=== PATIENT | male | born 1950 | race Caucasian/White ===

== ENCOUNTER 2022-07-22 15:36 | Inpatient (IN) | payer MEDICARE, OTHER ==
[~2022-07-22] VITALS: Ht 188 cm; Wt 80.7 kg
[2022-07-22] MEDS ORDERED: diphenhydrAMINE 50 MG/1 ML VIAL ONE (15:45)
[2022-07-22] MEDS ORDERED: HALOPERIDOL LACTATE 5 MG/1 ML VIAL ONE ×2 (15:46→17:45)
[2022-07-22] MEDS ORDERED: HALOPERIDOL LACTATE 5 MG/1 ML VIAL IM ONE ×2 (16:00→17:15)
[2022-07-22] MEDS ORDERED: diphenhydrAMINE 50 MG/1 ML VIAL IM ONE (16:00)
[2022-07-22] MEDS ORDERED: THIA100T13 PO (16:12)
[2022-07-22] MEDS ORDERED: BUSP30TA2 PO ×2 (16:12→20:55)
[2022-07-22] MEDS ORDERED: OLAN10TA3 PO ×2 (16:12→20:55)
[2022-07-22] MEDS ORDERED: SENN-261 PO ×2 (16:12→20:55)
[2022-07-22] MEDS ORDERED: FINA5TAB11 PO ×2 (16:12→20:55)
[2022-07-22] MEDS ORDERED: DIVA500T4 PO (16:12)
[2022-07-22] MEDS ORDERED: LORA-259 PO ×2 (16:12→20:55)
[2022-07-22] MEDS ORDERED: ERGO2000 PO (16:12)
[2022-07-22] MEDS ORDERED: TRAZ-182 PO ×2 (16:12→20:55)
[2022-07-22] MEDS ORDERED: AMAN100T PO ×2 (16:12→20:55)
[2022-07-22] MEDS ORDERED: DIVA500T2 PO ×3 (16:12→20:55)
[2022-07-22] MEDS ORDERED: LEVO100T PO ×2 (16:12→20:55)
[2022-07-22] MEDS ORDERED: CYAN100T44 PO ×2 (16:12→20:55)
[2022-07-22] MEDS ORDERED: LORAZEPAM 2 MG/1 ML VIAL ONE (16:39)
[2022-07-22] MEDS ORDERED: LORAZEPAM 2 MG/1 ML VIAL IM ONE ×2 (16:45→17:45)
[2022-07-22 18:19] LABS: HEMATOCRIT 36.5 % (36.7-47.1); MEAN CORPUSCULAR VOLUME 95.4 fL (73.0-96.2); PLATELET COUNT (AUTO) 243 K/uL (152-348)
[2022-07-22 18:31] LABS: CARBON DIOXIDE 27 mmol/L (21-32); CHLORIDE 107 mmol/L (98-107); GLUCOSE 106 mg/dL (74-106); POTASSIUM 4.9 mmol/L (3.5-5.1); UREA NITROGEN, BLOOD 39 mg/dL (7-18)
[2022-07-22 18:36] LABS: ALANINE AMINOTRANSFERASE 19 U/L (16-63); ALKALINE PHOSPHATASE 88 U/L (50-136); ASPARTATE AMINOTRANSFERASE 10 U/L (15-37); BILIRUBIN,DIRECT 0.1 mg/dL (0.0-0.2); BILIRUBIN,TOTAL 0.2 mg/dL (0.2-1.0); ETHANOL < 3 MG/DL (0-0); TOTAL PROTEIN, SERUM 6.9 g/dL (6.4-8.2)
[2022-07-22 18:37] LABS: ACETAMINOPHEN < 10.0 ug/mL (10-30)
[2022-07-22 20:34] LABS: *BILIRUBIN,URIN NEGATIVE (NEGATIVE); *CLARITY,URINE CLEAR (CLEAR); *COLOR,URINE LIGHT YELLOW (YELLOW); *KETONES,URINE NEGATIVE (NEGATIVE); *UROBILINOGEN,URINE 0.2 E.U./dl (NORMAL); LEUKOCYTE ESTERASE ,URINE 1+ (NEGATIVE); NITRITE, URINE NEGATIVE (NEGATIVE); UGLUCOSE NEGATIVE (NEGATIVE)
[2022-07-22 20:36] LABS: *BLOOD, URINE TRACE (NEGATIVE)
[2022-07-22] MEDS ORDERED: THIA100T74 PO (20:55)
[2022-07-22] MEDS ORDERED: ERGO50CA PO (20:55)
[2022-07-22] MEDS ORDERED: IV NS 1000 ML 1,000 ML IV ONE (21:00)
[2022-07-22 21:06] LABS: *AMPHETAMINE, URINE NEGATIVE (NEGATIVE); *CANNABINOID, URINE NEGATIVE (NEGATIVE); *COCCAINE, URINE NEGATIVE (NEGATIVE); *PHENCYCLIDINE SCREEN,URINE NEGATIVE (NEGATIVE); BACTERIA,URINE MANY /HPF (NONE SEEN); SQUAMOUS EPITHELIAL CELL,UR FEW /HPF (NONE SEEN); WBC,URINE 50-80 /HPF (0-3)
[2022-07-22] MEDS ORDERED: MAG HYDROX/AL HYDROX/SIMETH 30 ML LIQUID UDC PO PRN (23:00)
[2022-07-22] MEDS ORDERED: BLOOD SUGAR DIAGNOSTIC 1 EACH STRIP VI ONE (23:00)
[2022-07-22] MEDS ORDERED: MAGNESIUM HYDROXIDE 30 ML LIQUID UDC PO PRN (23:00)
[2022-07-22 23:14] VITALS: BP 163/92
[2022-07-22] MEDS: LORAZEPAM 1 MG TABLET PO PRN (23:21)
[2022-07-22] MEDS: ZOLPIDEM 5 MG TABLET PO PRN (23:21)
[2022-07-23] MEDS: LORAZEPAM 1 MG TABLET PO PRN ×3 (06:21→17:08)
[2022-07-23 07:30] VITALS: BP 152/60
[2022-07-23] MEDS: NICOTINE 21 MG/24HR PATCH TD SCH (09:12)
[2022-07-23] MEDS: DIVALPROEX 500 MG TABLET.DR PO SCH ×4 (10:03→20:21)
[2022-07-23] MEDS: OLANZAPINE 5 MG TABLET PO SCH ×3 (10:03→16:56)
[2022-07-23] MEDS ORDERED: HOME MED MISCELLANEOUS XX SCH (11:30)
[2022-07-23 16:00] VITALS: BP 142/81
[2022-07-23] MEDS: SENNOSIDES 1 TABLET PO SCH (16:56)
[2022-07-23 19:53] VITALS: BP 147/75
[2022-07-23] MEDS: TRAZODONE 50 MG TABLET PO SCH (20:21)
[2022-07-23] MEDS: ATORVASTATIN 40 MG TABLET PO SCH (20:21)
[2022-07-23] MEDS ORDERED: AMANTADINE HCL 100 MG CAPSULE ONE (21:02)
[2022-07-23] MEDS: AMANTADINE HCL 100 MG CAPSULE PO SCH (21:11)
[2022-07-23 21:22] LABS: *BILIRUBIN,URIN NEGATIVE (NEGATIVE); *BLOOD, URINE 2+ (NEGATIVE); *CLARITY,URINE CLEAR (CLEAR); *COLOR,URINE YELLOW (YELLOW); *KETONES,URINE NEGATIVE (NEGATIVE); *UROBILINOGEN,URINE 0.2 E.U./dl (NORMAL); LEUKOCYTE ESTERASE ,URINE 3+ (NEGATIVE); NITRITE, URINE NEGATIVE (NEGATIVE); PH,URINE 6.5 (5.0-8.0); UGLUCOSE NEGATIVE (NEGATIVE)
[2022-07-23 21:35] LABS: *CREATININE,URINE 26.4 mg/dL (30-125); *URINE TOTAL PROTEIN RANDOM 42.9 mg/dL (<150/24HR)
[2022-07-23] MEDS: CEphaleXIN 500 MG CAPSULE PO SCH (22:14)
[2022-07-24] MEDS: LORAZEPAM 1 MG TABLET PO PRN ×2 (04:23→22:07)
[2022-07-24] MEDS: CEphaleXIN 500 MG CAPSULE PO SCH ×3 (05:47→22:07)
[2022-07-24] MEDS: LEVOTHYROXINE SODIUM 100 MCG TABLET PO SCH (06:24)
[2022-07-24 07:54] VITALS: BP 143/70
[2022-07-24] MEDS ORDERED: CYANOCOBALAMIN 100 MCG TABLET PO SCH (09:00)
[2022-07-24] MEDS: DIVALPROEX 500 MG TABLET.DR PO SCH ×4 (09:50→22:14)
[2022-07-24] MEDS: SENNOSIDES 1 TABLET PO SCH ×2 (09:51→17:09)
[2022-07-24] MEDS: FINASTERIDE 5 MG TABLET PO SCH (09:51)
[2022-07-24] MEDS: CYANOCOBALAMIN 1,000 MCG TABLET PO SCH (09:52)
[2022-07-24] MEDS: THIAMINE HCL 100 MG TABLET PO SCH (09:52)
[2022-07-24] MEDS: NICOTINE 21 MG/24HR PATCH TD SCH (09:55)
[2022-07-24] MEDS: OLANZAPINE 5 MG TABLET PO SCH ×3 (09:55→17:09)
[2022-07-24] MEDS: CHOLECALCIFEROL 1,000 UNIT TABLET PO SCH (09:55)
[2022-07-24] MEDS: AMANTADINE HCL 100 MG CAPSULE PO SCH ×2 (10:06→22:06)
[2022-07-24 16:22] VITALS: BP 124/70
[2022-07-24] MEDS: ATORVASTATIN 40 MG TABLET PO SCH (22:07)
[2022-07-24] MEDS: TRAZODONE 50 MG TABLET PO SCH (22:07)
[2022-07-25] MEDS: CEphaleXIN 500 MG CAPSULE PO SCH ×3 (06:07→20:47)
[2022-07-25] MEDS: LEVOTHYROXINE SODIUM 100 MCG TABLET PO SCH (06:10)
[2022-07-25 07:54] LABS: CARBON DIOXIDE 24 mmol/L (21-32); CHLORIDE 107 mmol/L (98-107); CREATININE 1.9 mg/dL (0.6-1.3); GLUCOSE 97 mg/dL (74-106); POTASSIUM 4.7 mmol/L (3.5-5.1); UREA NITROGEN, BLOOD 43 mg/dL (7-18)
[2022-07-25 08:19] VITALS: BP 117/58
[2022-07-25] MEDS: FINASTERIDE 5 MG TABLET PO SCH (08:59)
[2022-07-25] MEDS: CHOLECALCIFEROL 1,000 UNIT TABLET PO SCH (08:59)
[2022-07-25] MEDS: SENNOSIDES 1 TABLET PO SCH ×2 (08:59→16:55)
[2022-07-25] MEDS: NICOTINE 21 MG/24HR PATCH TD SCH (08:59)
[2022-07-25] MEDS: AMANTADINE HCL 100 MG CAPSULE PO SCH ×2 (09:00→20:47)
[2022-07-25] MEDS: THIAMINE HCL 100 MG TABLET PO SCH (09:00)
[2022-07-25] MEDS: OLANZAPINE 5 MG TABLET PO SCH ×3 (09:00→16:55)
[2022-07-25] MEDS: CYANOCOBALAMIN 1,000 MCG TABLET PO SCH (09:00)
[2022-07-25] MEDS: DIVALPROEX 500 MG TABLET.DR PO SCH ×4 (09:00→20:47)
[2022-07-25 16:06] VITALS: BP 135/73
[2022-07-25 19:55] VITALS: BP 116/66
[2022-07-25] MEDS: LORAZEPAM 1 MG TABLET PO PRN (20:47)
[2022-07-25] MEDS: ATORVASTATIN 40 MG TABLET PO SCH (20:47)
[2022-07-25] MEDS: TRAZODONE 50 MG TABLET PO SCH (20:47)
[2022-07-25] MEDS: ACETAMINOPHEN 325 MG TABLET PO PRN (20:47)
[2022-07-26] MEDS: LORAZEPAM 1 MG TABLET PO PRN ×3 (05:28→20:12)
[2022-07-26] MEDS: ACETAMINOPHEN 325 MG TABLET PO PRN ×2 (05:28→20:13)
[2022-07-26] MEDS: CEphaleXIN 500 MG CAPSULE PO SCH ×3 (05:28→20:12)
[2022-07-26] MEDS: LEVOTHYROXINE SODIUM 100 MCG TABLET PO SCH (05:30)
[2022-07-26 08:52] VITALS: BP 116/53
[2022-07-26] MEDS: DIVALPROEX 500 MG TABLET.DR PO SCH ×4 (09:14→20:13)
[2022-07-26] MEDS: FINASTERIDE 5 MG TABLET PO SCH (09:14)
[2022-07-26] MEDS: OLANZAPINE 5 MG TABLET PO SCH ×3 (09:15→16:25)
[2022-07-26] MEDS: CHOLECALCIFEROL 1,000 UNIT TABLET PO SCH (09:15)
[2022-07-26] MEDS: SENNOSIDES 1 TABLET PO SCH ×2 (09:15→16:25)
[2022-07-26] MEDS: CYANOCOBALAMIN 1,000 MCG TABLET PO SCH (09:15)
[2022-07-26] MEDS: NICOTINE 21 MG/24HR PATCH TD SCH (09:16)
[2022-07-26] MEDS: AMANTADINE HCL 100 MG CAPSULE PO SCH ×2 (09:18→20:13)
[2022-07-26] MEDS: THIAMINE HCL 100 MG TABLET PO SCH (09:19)
[2022-07-26 16:44] VITALS: BP 94/45
[2022-07-26 20:12] VITALS: BP 111/56
[2022-07-26] MEDS: ATORVASTATIN 40 MG TABLET PO SCH (20:13)
[2022-07-26] MEDS: TRAZODONE 50 MG TABLET PO SCH (20:13)
[2022-07-27] MEDS: CEphaleXIN 500 MG CAPSULE PO SCH ×3 (06:28→21:39)
[2022-07-27] MEDS: LORAZEPAM 1 MG TABLET PO PRN ×2 (06:28→21:39)
[2022-07-27] MEDS: LEVOTHYROXINE SODIUM 100 MCG TABLET PO SCH (06:28)
[2022-07-27 08:14] VITALS: BP 122/80
[2022-07-27] MEDS: AMANTADINE HCL 100 MG CAPSULE PO SCH ×2 (08:25→21:39)
[2022-07-27] MEDS: THIAMINE HCL 100 MG TABLET PO SCH (08:25)
[2022-07-27] MEDS: NICOTINE 21 MG/24HR PATCH TD SCH (08:25)
[2022-07-27] MEDS: OLANZAPINE 5 MG TABLET PO SCH ×2 (08:26→16:16)
[2022-07-27] MEDS: CHOLECALCIFEROL 1,000 UNIT TABLET PO SCH (08:26)
[2022-07-27] MEDS: DIVALPROEX 500 MG TABLET.DR PO SCH ×4 (08:26→21:39)
[2022-07-27] MEDS: SENNOSIDES 1 TABLET PO SCH ×2 (08:26→16:16)
[2022-07-27] MEDS: CYANOCOBALAMIN 1,000 MCG TABLET PO SCH (08:26)
[2022-07-27] MEDS: FINASTERIDE 5 MG TABLET PO SCH (08:26)
[2022-07-27 16:01] VITALS: BP 123/75
[2022-07-27 19:50] VITALS: BP 132/76
[2022-07-27] MEDS: ATORVASTATIN 40 MG TABLET PO SCH (21:39)
[2022-07-27] MEDS: TRAZODONE 50 MG TABLET PO SCH (21:39)
[2022-07-28] MEDS: LORAZEPAM 1 MG TABLET PO PRN ×2 (05:56→12:40)
[2022-07-28] MEDS: LEVOTHYROXINE SODIUM 100 MCG TABLET PO SCH (05:56)
[2022-07-28] MEDS: CEphaleXIN 500 MG CAPSULE PO SCH ×2 (05:57→14:00)
[2022-07-28] MEDS: ACETAMINOPHEN 325 MG TABLET PO PRN (05:58)
[2022-07-28 07:30] VITALS: BP 122/81
[2022-07-28] MEDS: AMANTADINE HCL 100 MG CAPSULE PO SCH ×2 (09:28→20:47)
[2022-07-28] MEDS: NICOTINE 21 MG/24HR PATCH TD SCH (09:28)
[2022-07-28] MEDS: SENNOSIDES 1 TABLET PO SCH ×2 (09:29→17:29)
[2022-07-28] MEDS: FINASTERIDE 5 MG TABLET PO SCH (09:29)
[2022-07-28] MEDS: OLANZAPINE 5 MG TABLET PO SCH ×2 (09:29→17:29)
[2022-07-28] MEDS: DIVALPROEX 500 MG TABLET.DR PO SCH ×4 (09:29→20:47)
[2022-07-28] MEDS: CYANOCOBALAMIN 1,000 MCG TABLET PO SCH (09:29)
[2022-07-28] MEDS: CHOLECALCIFEROL 1,000 UNIT TABLET PO SCH (09:29)
[2022-07-28] MEDS: THIAMINE HCL 100 MG TABLET PO SCH (09:35)
[2022-07-28 16:00] VITALS: BP 129/89
[2022-07-28] MEDS: ATORVASTATIN 40 MG TABLET PO SCH (20:47)
[2022-07-28] MEDS: TRAZODONE 50 MG TABLET PO SCH (20:47)
[2022-07-28] MEDS: ZOLPIDEM 5 MG TABLET PO PRN (21:35)
[2022-07-29] MEDS: LEVOTHYROXINE SODIUM 100 MCG TABLET PO SCH (06:00)
[2022-07-29 07:44] LABS: HEMATOCRIT 40.4 % (36.7-47.1); MEAN CORPUSCULAR HEMOGLOBIN 30.9 uug (23.8-33.4); MEAN CORPUSCULAR VOLUME 95.1 fL (73.0-96.2); PLATELET COUNT (AUTO) 243 K/uL (152-348)
[2022-07-29 08:00] VITALS: BP 127/84
[2022-07-29] MEDS: DIVALPROEX 500 MG TABLET.DR PO SCH ×4 (08:40→20:17)
[2022-07-29] MEDS: THIAMINE HCL 100 MG TABLET PO SCH (08:41)
[2022-07-29] MEDS: SENNOSIDES 1 TABLET PO SCH ×2 (08:41→17:19)
[2022-07-29] MEDS: CHOLECALCIFEROL 1,000 UNIT TABLET PO SCH (08:41)
[2022-07-29] MEDS: FINASTERIDE 5 MG TABLET PO SCH (08:41)
[2022-07-29] MEDS: CYANOCOBALAMIN 1,000 MCG TABLET PO SCH (08:41)
[2022-07-29] MEDS: AMANTADINE HCL 100 MG CAPSULE PO SCH ×2 (08:43→20:17)
[2022-07-29] MEDS: NICOTINE 21 MG/24HR PATCH TD SCH (08:43)
[2022-07-29 08:45] LABS: ALANINE AMINOTRANSFERASE 20 U/L (16-63); ALKALINE PHOSPHATASE 93 U/L (50-136); ASPARTATE AMINOTRANSFERASE 10 U/L (15-37); BILIRUBIN,TOTAL 0.3 mg/dL (0.2-1.0); CARBON DIOXIDE 28 mmol/L (21-32); CHLORIDE 108 mmol/L (98-107); CREATINE KINASE, TOTAL 78 U/L (39-308); CREATININE 1.7 mg/dL (0.6-1.3); GLUCOSE 95 mg/dL (74-106); MAGNESIUM 2.3 mg/dL (1.8-2.4); PHOSPHOROUS 3.3 mg/dL (2.5-4.9); POTASSIUM 4.9 mmol/L (3.5-5.1); TOTAL PROTEIN, SERUM 7.8 g/dL (6.4-8.2); UREA NITROGEN, BLOOD 39 mg/dL (7-18)
[2022-07-29] MEDS: OLANZAPINE 5 MG TABLET PO SCH ×4 (08:46→17:20)
[2022-07-29] MEDS ORDERED: OLANZAPINE 10 MG VIAL IM ONE (09:00)
[2022-07-29] MEDS: LORAZEPAM 1 MG TABLET PO PRN (10:34)
[2022-07-29 12:00] VITALS: BP 97/43
[2022-07-29 16:00] VITALS: BP 132/72
[2022-07-29] MEDS: ATORVASTATIN 40 MG TABLET PO SCH (20:17)
[2022-07-29] MEDS: TRAZODONE 50 MG TABLET PO SCH (20:17)
[2022-07-30] MEDS: LORAZEPAM 1 MG TABLET PO PRN ×2 (03:39→12:55)
[2022-07-30] MEDS: LEVOTHYROXINE SODIUM 100 MCG TABLET PO SCH (06:26)
[2022-07-30 08:00] VITALS: BP 114/63
[2022-07-30] MEDS: CYANOCOBALAMIN 1,000 MCG TABLET PO SCH (08:54)
[2022-07-30] MEDS: OLANZAPINE 5 MG TABLET PO SCH ×3 (08:54→17:33)
[2022-07-30] MEDS: SENNOSIDES 1 TABLET PO SCH ×2 (08:55→17:32)
[2022-07-30] MEDS: DIVALPROEX 500 MG TABLET.DR PO SCH ×4 (08:55→20:24)
[2022-07-30] MEDS: THIAMINE HCL 100 MG TABLET PO SCH (08:55)
[2022-07-30] MEDS: CHOLECALCIFEROL 1,000 UNIT TABLET PO SCH (08:55)
[2022-07-30] MEDS: FINASTERIDE 5 MG TABLET PO SCH (08:55)
[2022-07-30] MEDS: AMANTADINE HCL 100 MG CAPSULE PO SCH ×2 (08:56→20:24)
[2022-07-30] MEDS: NICOTINE 21 MG/24HR PATCH TD SCH (08:57)
[2022-07-30 16:24] VITALS: BP 131/88
[2022-07-30] MEDS: ATORVASTATIN 40 MG TABLET PO SCH (20:24)
[2022-07-30] MEDS: TRAZODONE 50 MG TABLET PO SCH (20:24)
[2022-07-30 20:26] VITALS: BP 115/51
[2022-07-31] MEDS: LEVOTHYROXINE SODIUM 100 MCG TABLET PO SCH (06:19)
[2022-07-31] MEDS: LORAZEPAM 1 MG TABLET PO PRN ×2 (07:46→21:27)
[2022-07-31 07:55] VITALS: BP 136/80
[2022-07-31] MEDS: OLANZAPINE 5 MG TABLET PO SCH ×3 (08:21→16:13)
[2022-07-31] MEDS: DIVALPROEX 500 MG TABLET.DR PO SCH ×4 (08:21→21:04)
[2022-07-31] MEDS: SENNOSIDES 1 TABLET PO SCH ×2 (08:21→16:13)
[2022-07-31] MEDS: CYANOCOBALAMIN 1,000 MCG TABLET PO SCH (08:22)
[2022-07-31] MEDS: THIAMINE HCL 100 MG TABLET PO SCH (08:22)
[2022-07-31] MEDS: FINASTERIDE 5 MG TABLET PO SCH (08:22)
[2022-07-31] MEDS: CHOLECALCIFEROL 1,000 UNIT TABLET PO SCH (08:22)
[2022-07-31] MEDS: AMANTADINE HCL 100 MG CAPSULE PO SCH ×2 (08:24→21:06)
[2022-07-31] MEDS: NICOTINE 21 MG/24HR PATCH TD SCH (08:24)
[2022-07-31 16:11] VITALS: BP 139/85
[2022-07-31 20:00] VITALS: BP 135/86
[2022-07-31] MEDS: TRAZODONE 50 MG TABLET PO SCH (21:04)
[2022-07-31] MEDS: ATORVASTATIN 40 MG TABLET PO SCH (21:04)
[2022-08-01] MEDS: LORAZEPAM 1 MG TABLET PO PRN ×3 (05:31→20:43)
[2022-08-01] MEDS: LEVOTHYROXINE SODIUM 100 MCG TABLET PO SCH (06:08)
[2022-08-01 08:41] VITALS: BP 133/75
[2022-08-01] MEDS: FINASTERIDE 5 MG TABLET PO SCH (08:49)
[2022-08-01] MEDS: CHOLECALCIFEROL 1,000 UNIT TABLET PO SCH (08:49)
[2022-08-01] MEDS: SENNOSIDES 1 TABLET PO SCH ×2 (08:50→16:23)
[2022-08-01] MEDS: CYANOCOBALAMIN 1,000 MCG TABLET PO SCH (08:50)
[2022-08-01] MEDS: NICOTINE 21 MG/24HR PATCH TD SCH (08:50)
[2022-08-01] MEDS: OLANZAPINE 5 MG TABLET PO SCH ×3 (08:50→16:23)
[2022-08-01] MEDS: AMANTADINE HCL 100 MG CAPSULE PO SCH ×2 (08:50→20:39)
[2022-08-01] MEDS: DIVALPROEX 500 MG TABLET.DR PO SCH ×4 (08:50→20:39)
[2022-08-01] MEDS: THIAMINE HCL 100 MG TABLET PO SCH (08:52)
[2022-08-01] MEDS: ACETAMINOPHEN 325 MG TABLET PO PRN (15:02)
[2022-08-01] MEDS: TRAZODONE 50 MG TABLET PO SCH (20:39)
[2022-08-01] MEDS: ATORVASTATIN 40 MG TABLET PO SCH (20:39)
[2022-08-02] MEDS: LORAZEPAM 1 MG TABLET PO PRN ×2 (03:31→20:06)
[2022-08-02] MEDS: ACETAMINOPHEN 325 MG TABLET PO PRN ×2 (03:31→17:20)
[2022-08-02] MEDS: LEVOTHYROXINE SODIUM 100 MCG TABLET PO SCH (06:08)
[2022-08-02] MEDS: FINASTERIDE 5 MG TABLET PO SCH (08:15)
[2022-08-02] MEDS: DIVALPROEX 500 MG TABLET.DR PO SCH ×4 (08:15→20:06)
[2022-08-02] MEDS: CYANOCOBALAMIN 1,000 MCG TABLET PO SCH (08:15)
[2022-08-02] MEDS: AMANTADINE HCL 100 MG CAPSULE PO SCH ×2 (08:15→20:06)
[2022-08-02] MEDS: OLANZAPINE 5 MG TABLET PO SCH ×3 (08:15→17:20)
[2022-08-02] MEDS: THIAMINE HCL 100 MG TABLET PO SCH (08:15)
[2022-08-02] MEDS: NICOTINE 21 MG/24HR PATCH TD SCH (08:15)
[2022-08-02] MEDS: SENNOSIDES 1 TABLET PO SCH ×2 (08:15→17:20)
[2022-08-02] MEDS: CHOLECALCIFEROL 1,000 UNIT TABLET PO SCH (08:15)
[2022-08-02 08:33] VITALS: BP 128/79
[2022-08-02 16:24] VITALS: BP 108/82
[2022-08-02 19:57] VITALS: BP 116/83
[2022-08-02] MEDS: TRAZODONE 50 MG TABLET PO SCH (20:06)
[2022-08-02] MEDS: ATORVASTATIN 40 MG TABLET PO SCH (20:06)
[2022-08-03] MEDS: LEVOTHYROXINE SODIUM 100 MCG TABLET PO SCH (05:56)
[2022-08-03] MEDS: LORAZEPAM 1 MG TABLET PO PRN (05:56)
[2022-08-03 08:18] VITALS: BP 133/68
[2022-08-03] MEDS: DIVALPROEX 500 MG TABLET.DR PO SCH ×4 (08:35→20:14)
[2022-08-03] MEDS: NICOTINE 21 MG/24HR PATCH TD SCH (08:35)
[2022-08-03] MEDS: FINASTERIDE 5 MG TABLET PO SCH (08:35)
[2022-08-03] MEDS: CYANOCOBALAMIN 1,000 MCG TABLET PO SCH (08:35)
[2022-08-03] MEDS: SENNOSIDES 1 TABLET PO SCH ×2 (08:35→16:36)
[2022-08-03] MEDS: OLANZAPINE 5 MG TABLET PO SCH ×3 (08:35→16:36)
[2022-08-03] MEDS: CHOLECALCIFEROL 1,000 UNIT TABLET PO SCH (08:35)
[2022-08-03] MEDS: AMANTADINE HCL 100 MG CAPSULE PO SCH ×2 (08:35→20:14)
[2022-08-03] MEDS: THIAMINE HCL 100 MG TABLET PO SCH (08:38)
[2022-08-03] MEDS: GABAPENTIN 100 MG CAPSULE PO SCH ×3 (09:59→16:36)
[2022-08-03 15:48] VITALS: BP 114/72
[2022-08-03 20:13] VITALS: BP 142/68
[2022-08-03] MEDS: ATORVASTATIN 40 MG TABLET PO SCH (20:14)
[2022-08-03] MEDS: TRAZODONE 50 MG TABLET PO SCH (20:14)
[2022-08-04] MEDS: LORAZEPAM 1 MG TABLET PO PRN (01:04)
[2022-08-04] MEDS: ZOLPIDEM 5 MG TABLET PO PRN (01:05)
[2022-08-04] MEDS: LEVOTHYROXINE SODIUM 100 MCG TABLET PO SCH (06:20)
[2022-08-04 08:03] VITALS: BP 129/81
[2022-08-04] MEDS: THIAMINE HCL 100 MG TABLET PO SCH (08:27)
[2022-08-04] MEDS: SENNOSIDES 1 TABLET PO SCH ×2 (08:27→17:10)
[2022-08-04] MEDS: CYANOCOBALAMIN 1,000 MCG TABLET PO SCH (08:27)
[2022-08-04] MEDS: FINASTERIDE 5 MG TABLET PO SCH (08:27)
[2022-08-04] MEDS: DIVALPROEX 500 MG TABLET.DR PO SCH ×4 (08:27→20:15)
[2022-08-04] MEDS: GABAPENTIN 100 MG CAPSULE PO SCH ×3 (08:27→17:10)
[2022-08-04] MEDS: CHOLECALCIFEROL 1,000 UNIT TABLET PO SCH (08:27)
[2022-08-04] MEDS: OLANZAPINE 5 MG TABLET PO SCH ×3 (08:28→17:10)
[2022-08-04] MEDS: AMANTADINE HCL 100 MG CAPSULE PO SCH ×2 (08:30→20:15)
[2022-08-04] MEDS: NICOTINE 21 MG/24HR PATCH TD SCH (08:30)
[2022-08-04] MEDS: TRAZODONE 50 MG TABLET PO SCH (20:15)
[2022-08-04] MEDS: ATORVASTATIN 40 MG TABLET PO SCH (20:15)
[2022-08-04 20:17] VITALS: BP 111/62
[2022-08-05] MEDS: ZOLPIDEM 5 MG TABLET PO PRN (00:02)
[2022-08-05] MEDS: LEVOTHYROXINE SODIUM 100 MCG TABLET PO SCH (06:02)
[2022-08-05 08:00] VITALS: BP 130/28
[2022-08-05] MEDS: FINASTERIDE 5 MG TABLET PO SCH (09:12)
[2022-08-05] MEDS: OLANZAPINE 5 MG TABLET PO SCH (09:12)
[2022-08-05] MEDS: AMANTADINE HCL 100 MG CAPSULE PO SCH (09:13)
[2022-08-05] MEDS: DIVALPROEX 500 MG TABLET.DR PO SCH (09:13)
[2022-08-05] MEDS: CHOLECALCIFEROL 1,000 UNIT TABLET PO SCH (09:13)
[2022-08-05] MEDS: SENNOSIDES 1 TABLET PO SCH (09:13)
[2022-08-05] MEDS: CYANOCOBALAMIN 1,000 MCG TABLET PO SCH (09:13)
[2022-08-05] MEDS: NICOTINE 21 MG/24HR PATCH TD SCH (09:14)
[2022-08-05] MEDS: THIAMINE HCL 100 MG TABLET PO SCH (09:16)
[2022-08-05] MEDS: GABAPENTIN 100 MG CAPSULE PO SCH (09:16)
[2022-08-05] MEDS: LORAZEPAM 1 MG TABLET PO PRN (10:48)
== END 2022-08-05 11:30 | DRG 885 ==
LOC: ER 15:36 → GPS 22:34
PROVIDERS: ADMIT Psychiatry & Neurology Psychiatry; ATTEND Nurse Practitioner Acute Care
DX: F25.0 Schizoaffective disorder, bipolar type (principal); N17.9 Acute kidney failure, unspecified; N39.0 Urinary tract infection, site not specified; J44.9 Chronic obstructive pulmonary disease, unspecified; Z91.14 Patient's other noncompliance with medication regimen; E03.9 Hypothyroidism, unspecified; Z79.890 Hormone replacement therapy; E78.5 Hyperlipidemia, unspecified; I13.10 Hypertensive heart and chronic kidney disease without heart failure, with stage 1 through stage 4 chronic kidney disease, or unspecified chronic kidney disease; Z91.199 Patient's noncompliance with other medical treatment and regimen due to unspecified reason; B96.89 Other specified bacterial agents as the cause of diseases classified elsewhere; I45.10 Unspecified right bundle-branch block; D63.8 Anemia in other chronic diseases classified elsewhere; Z20.822 Contact with and (suspected) exposure to COVID-19
CPT/HCPCS: 36415; 71045; 76770; 80164; 83735; 84100; 84156; 84300; 84484; 85025; 93005; 97161; A4663; G0480; J1200; J1630; J2060; J2358; J7040